=== PATIENT | female | born 1935 | race American Indian/Alaskan Native ===

== ENCOUNTER 2016-05-27 11:22 | Outpatient (CLI) | payer MEDICARE ==
--- NOTE | 2016-05-27 14:28 | XRay Report ---
CHEST 2 VIEWS INDICATION: Shortness of breath. COMPARISON: 12/02/2013 CXR and 09/20/2014 CT findings. FINDINGS: PA and lateral chest radiographs demonstrate stable cardiomediastinal silhouette, descending aortic uncoiling and bilateral humeral medullary rods. Clear lungs without pleural effusions or CHF. Stable demineralized bones with moderately advanced multilevel thoracic spine degenerative changes, including disc narrowing, adjacent sclerosis and degenerative spurring. Smooth bone loss/convex contour about the right humeral neck medially appears slightly more pronounced, in part projectional. 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 Please correlate. Thank you for the opportunity to participate in this patient's care.
== END 2016-05-27 11:23 | disposition home or self-care (01) ==
LOC: SPVIMAG 11:22
PROVIDERS: ATTEND Internal Medicine
DX: R06.02 Shortness of breath (principal); M47.894 Other spondylosis, thoracic region
CPT/HCPCS: 71020